=== PATIENT | male | born 1945 ===

== ENCOUNTER 2018-02-05 12:14 | Day surgery (SDC) | payer MEDICARE, MEDICAID ==
[2018-01-31 13:07] VITALS: BMI 28.3
[2018-02-05] MEDS ORDERED: cefTRIAXone IV 1 gm in Dextros 50 ML IVPB ONE (15:58)
[2018-02-05] MEDS ORDERED: Midazolam 2 MG/2 ML VIAL ONE (16:02)
[2018-02-05] MEDS ORDERED: Propofol 10 mg/ml Inj (20 ML) ONE ×2 (16:02→16:19)
[2018-02-05] MEDS ORDERED: HYDROmorphone 0.5 mg/0.5 ml ISec IVP PRN (16:27)
[2018-02-05 18:32] VITALS: BP 142/74; PULSE 66; RESP 16; TEMP 97.8; O2SAT 97
--- NOTE | 2018-02-06 04:29 | OP ---
Copied To: Ester Vasquez MD Attending MD: Ester Vasquez MD PROCEDURE DATE: 02/05/2018 PREOPERATIVE DIAGNOSES: Prostatic hypertrophy and hematuria. 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 DESCRIPTION OF PROCEDURE: While the patient in lithotomy position and after starting Rocephin, genitalia prepped and draped in sterile fashion. Attempt to pass scope was unsuccessful because of severe submeatus stenosis. I could not even start with 8-Macedonian, I needed to dilate a few times before I put the 8-Macedonian in the meatus. After that, dilatation was continued until 26-Macedonian. A #19 scope inserted, and it revealed the bladder trabeculated with large multiple residual tissues causing obstruction of the left side of the trigon and deep inside and everything of the tissue on the left side, multiple bulk of tissue, causing obstruction and come to midline. After emptying the bladder, the scope removed and the patient transferred to the recovery room in stable condition. Ester Vasquez MD
== END 2018-02-05 18:54 | disposition home or self-care (01) ==
LOC: C.SDS 12:14
PROVIDERS: ATTEND Specialist
DX: N35.9 Urethral stricture, unspecified (principal); N40.1 Benign prostatic hyperplasia with lower urinary tract symptoms; N13.8 Other obstructive and reflux uropathy; R31.9 Hematuria, unspecified
CPT/HCPCS: 52281; J0696

== ENCOUNTER 2018-02-21 09:55 | Observation (INO) | payer MEDICARE, MEDICAID ==
[2018-02-18 12:19] VITALS: BMI 28.8
[2018-02-21] MEDS ORDERED: cefTRIAXone 1 gm 1 GM/100 ML BAG IVPB ONE (12:13)
[2018-02-21] MEDS ORDERED: Midazolam 2 MG/2 ML VIAL ONE (12:22)
[2018-02-21] MEDS ORDERED: Propofol 10 mg/ml Inj (20 ML) ONE (12:22)
[2018-02-21] MEDS ORDERED: HYDROmorphone 0.5 mg/0.5 ml ISec IVP PRN (13:20)
[2018-02-21] MEDS ORDERED: Furosemide 10 mg/mL LIQ (60mL) PO ONE (14:15)
[2018-02-21] MEDS ORDERED: Lactated Ringer's 1,000 ML IV ONE (16:00)
[2018-02-21 19:14] VITALS: O2SAT 97
[2018-02-21] MEDS: Lactated Ringer's 1,000 ML IV SCH (19:30)
[2018-02-21] MEDS ORDERED: Oxycodone/Acetaminophen 5/325 mg Tab PO PRN (19:37)
[2018-02-21 23:19] VITALS: RESP 20
[2018-02-22] MEDS: Lactated Ringer's 1,000 ML IV SCH ×3 (03:05→09:57)
[2018-02-22 08:19] VITALS: BP 147/86; PULSE 67; TEMP 98.4
--- NOTE | 2018-02-24 08:42 | OP ---
Copied To: Ester Vasquez MD Attending MD: Ester Vasquez MD PROCEDURE DATE: 02/21/2018 PREOPERATIVE DIAGNOSES: Submeatal stenosis, prostatic hypertrophy, and hematuria. POSTOPERATIVE DIAGNOSES: Submeatal stenosis, prostatic hypertrophy, and hematuria. PROCEDURES: Dilatation and transurethral resection of the prostate. DESCRIPTION OF PROCEDURE: While the patient in lithotomy position and after starting anesthesia, genitalia were prepped and draped in sterile fashion. The patient was given Rocephin 1 g. Urethra was dilated with #25 continuous flow resectoscope inserted under direct vision, which revealed multiple tissue bulky causing obstruction of the prostatic urethra with bleeding and irregularity, and the bladder itself revealed some trabeculation. No tumor seen in the lateral side of the posterior aspect. Both orifices localized and far from the area of the tissue. Resection done starting from the bladder neck to the lateral side. Multiple bulky pieces of tissue resected. At the end of the resection, there was no obstruction between the veru and the bladder neck. It was wide open. All tissues irrigated out. After irrigating couple times and taking all the tissues, some area fulgurated. There was no active bleeding for CBI, so #22 two-way Ramirez inserted and it is draining pinkish urine. My plan is to keep him overnight, remove the Ramirez tomorrow, and then discharge the patient. So, we will admit him after observation for less than 24 hours. The patient's Ramirez inserted and draining okay. The patient was transferred to the recovery room in stable condition. Ester Vasquez MD
== END 2018-02-22 12:43 | disposition home or self-care (01) ==
LOC: INTOOBSV 09:55 → C.9S 09:55 → EDSTATUS 11:30 → C.3T 17:27
PROVIDERS: ADMIT Specialist; ATTEND Specialist
DX: N40.0 Benign prostatic hyperplasia without lower urinary tract symptoms (principal); R31.1 Benign essential microscopic hematuria; N35.9 Urethral stricture, unspecified
CPT/HCPCS: 52601; 88305; C2627; G0378; J0696; J1170; J7120